=== PATIENT | male | born 1975 | race Caucasian/White ===

== ENCOUNTER 2018-11-18 12:04 | Emergency (ER) | payer MEDICAID ==
[~2018-11-18] VITALS: Ht 175.3 cm; Wt 81.6 kg
[2018-11-18 12:14] VITALS: BP 120/77
--- NOTE | 2018-11-18 12:20 | NUR ---
43M c/o suicidal ideation, anxiety, paranoia x 3 weeks. Was at [facility] yesterday for same problems and was admitted for 1 night per patient. States meth use yesterday. Pt thought about cutting him self but does not want to harm other people. Pt does not have a suicidal plan. VSS; PATIENT POSITIONED FOR COMFORT; HOB ELEVATED; BEDRAILS UP X2; BED DOWN. ER MD MADE AWARE OF PT STATUS. ALL WIRES AND OTHER STUFF REMOVED FROM THE ROOM. PT IS FULLY UNDRESSED AND ON HOSPITAL GOWN WITH HOSPITAL UNDERWEAR.
--- NOTE | 2018-11-18 12:39 | NUR ---
DR. PAN AT BEDSIDE EVALUATING PATIENT.
--- NOTE | 2018-11-18 13:10 | NUR ---
PT ATTEMPTED TO COLLECT URINE, PT WAS UNABLE TO AT THIS TIME. GIVEN MORE WATER
[2018-11-18 13:11] LABS: BASOPHILS % (AUTO) 0.5 % (0.0-2.0); EOSINOPHILS % (AUTO) 0.2 % (0.0-4.0); HEMATOCRIT 40.1 % (36-52); HEMOGLOBIN 13.7 g/dL (12.0-18.0); LYMPHOCYTES % (AUTO) 17.7 % (20.5-51.1); MEAN CORPUSCULAR HEMOGLOBIN 31 pg (27-31); MEAN CORPUSCULAR HGB CONC 34 g/dL (33-37); MEAN CORPUSCULAR VOLUME 90.8 fL (80-94); MONOCYTES # (AUTO) 0.9 K/uL (0.8-1.0); MONOCYTES % (AUTO) 15.2 % (1.7-9.3); NEUTROPHILS # (AUTO) 3.8 K/uL (1.8-7.7); NEUTROPHILS % (AUTO) 66.4 % (42.2-75.2); PLATELET COUNT (AUTO) 285 K/uL (140-450); RED BLOOD CELL COUNT(AUTO) 4.41 MIL/uL (4.20-6.10); RED CELL DISTRIBUTION WIDTH 12.9 % (11.6-13.7); WHITE BLOOD COUNT (AUTO) 5.7 K/uL (4.8-10.8)
[2018-11-18 13:27] LABS: ANION GAP 14.1 (8-16); ASPARTATE AMINOTRANSFERASE 28 U/L (15-37); CARBON DIOXIDE 27.4 mmol/L (21-32); CHLORIDE 102 mmol/L (98-107); CREATININE 0.9 mg/dL (0.7-1.3); GFR ARICAN-AMERICAN 118 mL/min (>90); GLUCOSE 74 mg/dL (74-106); POTASSIUM 3.5 mmol/L (3.5-5.1); SALICYLATE < 2.8 mg/dL (2.8-20.0); SODIUM SERUM 140 mmol/L (136-145); TOTAL BILIRUBIN 0.5 mg/dL (0.0-1.0); UREA NITROGEN, BLOOD 13 mg/dL (7-18)
[2018-11-18 13:28] LABS: ACETAMINOPHEN < 0.5 ug/ml (10-30)
--- NOTE | 2018-11-18 13:52 | NUR ---
[place] [employer] AT BEDSIDE
--- NOTE | 2018-11-18 14:42 | NUR ---
PT ATTEMPTED TO COLLECT URINE, PT STATED HE IS UNABLE TO AT THIS TIME. DR PAN MADE AWARE. PER DR PAN, VERBAL ORDER TO PERFORM STRAIGHT CATH TO COLLECT URINE. EXPLAINED INDICATION AND PROCEDURE TO PT, PT REFUSED DESPITE EDUCATION. PT GIVEN MORE WATER, WILL ATTEMPT TO COLLECT URINE LATER.
--- NOTE | 2018-11-18 15:02 | NUR ---
URINE SAMPLE COLLECTED AND WALKED TO THE LAB.
[2018-11-18 15:50] LABS: BARBITURATE, URINE NEG. ng/ml (NEG <=200); BENZODIAZEPINE, URINE NEG. ng/mL (NEG <=200); CANNABINOID, URINE NEG. ng/mL (NEG <=50); COCAINE, URINE NEG. ng/mL (NEG <=300); OPIATE, URINE NEG. ng/mL (NEG <=2000); PHENCYCLIDINE SCREEN,URINE NEG. ng/mL (NEG <=25)
[2018-11-18 16:37] VITALS: BP 137/85
--- NOTE | 2018-11-18 16:39 | NUR ---
Patient discharged with v/s stable. Written and verbal after care instructions given and explained. Patient verbalized understanding. Ambulatory with [place] [employer] in custody. All questions addressed prior to discharge. Advised to follow up with PMD.
== END 2018-11-18 16:39 ==
LOC: MED 12:04
DX: R45.851 Suicidal ideations (principal); R50.9 Fever, unspecified; F41.9 Anxiety disorder, unspecified; R44.1 Visual hallucinations; F25.9 Schizoaffective disorder, unspecified; Z88.0 Allergy status to penicillin
CPT/HCPCS: 36415; 80053; 80305; 85025; 93005; 99284; G0480; G0482; C1758